=== PATIENT | female | born 1945 | race Caucasian/White ===

== ENCOUNTER → 2016-11-03 | Outpatient (CLI) | payer MEDICARE, BC, OTHER ==
--- NOTE | 2016-11-04 09:58 | RAD ---
DATE: 11/03/2016 EXAM: MAMMO ADOLFO SCREENING BILATERAL HISTORY: Routine screening COMPARISON: This study was interpreted with the benefit of Computerized Aided Detection (CAD). FINDINGS: Breast Density: SCATTERED The breast parenchyma shows scattered fibroglandular densities. Breast parenchyma level B. There are no dominant suspicious masses, suspicious microcalcifications or evidence of architectural distortion. Small right intramammary lymph node grossly similar to prior exam. IMPRESSION: Benign findings BI-RADS CATEGORY: 2 BENIGN FINDING RECOMMENDED FOLLOW-UP: 12M 12 MONTH FOLLOW-UP PQRS compliance statement: Patient information was entered into a reminder system with a target due date 11/03/2017 for the next mammogram. Mammography is a sensitive method for finding small breast cancers, but it does not detect them all and is not a substitute for careful clinical examination. A negative mammogram does not negate a clinically suspicious finding and should not result in delay in biopsying a clinically suspicious abnormality. "Our facility is accredited by the [employer] Mammography [employer]."
== END | disposition home or self-care (01) ==
LOC: MAMMO 08:25
PROVIDERS: ATTEND Family Medicine
DX: Z12.31 Encounter for screening mammogram for malignant neoplasm of breast (principal)
CPT/HCPCS: 77063; G0202; 77067

== ENCOUNTER 2017-12-29 09:41 | Inpatient (IN) | payer MEDICARE, BC, OTHER ==
[2017-12-29] VITALS (8 sets, daily range): BP systolic 98–124; BP diastolic 47–65
[~2017-12-29] VITALS: Ht 162.6 cm; Wt 88.7 kg
[2017-12-29] MEDS ORDERED: IV NORMAL SALINE 1,000ML 1,000 ML IV ONE ×2 (10:45→12:00)
[2017-12-29 10:58] LABS: BASO % 0 % (0-3); EOS # 0.2 x10^3/uL (0.0-0.7); EOS % 3 % (0-3); HEMATOCRIT 43.2 % (36.0-47.0); HEMOGLOBIN 14.7 g/dL (12.0-15.5); LYMPH # 1.1 x10^3/uL (1.0-4.8); LYMPH % 16 % (24-48); MEAN CORPUSCULAR HEMOGLOBIN 32 pg (25-35); MEAN CORPUSCULAR HGB CONC 34 g/dL (31-37); MEAN CORPUSCULAR VOLUME 95 fL (79-100); MONO # 0.8 x10^3/uL (0.0-1.1); MONO % 11 % (0-9); NEUT # 4.9 x10^3uL (1.8-7.7); NEUT % 70 % (31-73); PLATELET COUNT 212 x10^3/uL (140-400); RED BLOOD COUNT 4.56 x10^6/uL (3.50-5.40); RED CELL DISTRIBUTION WIDTH 12.1 % (11.5-14.5); WHITE BLOOD COUNT 7.1 x10^3/uL (4.0-11.0)
[2017-12-29 11:29] LABS: ALBUMIN 3.2 g/dL (3.4-5.0); CALCIUM 9.6 mg/dL (8.5-10.1); CREATININE 1.7 mg/dL (0.6-1.0); GFR 29.4; MAGNESIUM 2.5 mg/dL (1.8-2.4); POTASSIUM 4.2 mmol/L (3.5-5.1); TOTAL BILIRUBIN 0.6 mg/dL (0.2-1.0); TOTAL PROTEIN 6.5 g/dL (6.4-8.2)
[2017-12-29] MEDS ORDERED: MAGNESIUM SULFATE 2GM 50 ML IV PRN (11:30)
[2017-12-29] MEDS ORDERED: IV NORMAL SALINE 1,000ML 1,000 ML IV SCH (11:30)
[2017-12-29] MEDS ORDERED: GLIP-112 PO (11:31)
[2017-12-29] MEDS ORDERED: NYST1000 PO (11:31)
[2017-12-29] MEDS ORDERED: OLME1TAB21 PO (11:31)
[2017-12-29 11:33] LABS: BACTERIA,URINE FEW /HPF (0-FEW); BILIRUBIN,URINE NEG (NEG); CLARITY,URINE HAZY; COLOR,URINE YELLOW; GLUCOSE,URINE >=1000 mg/dL (NEG); NITRITE,URINE NEG (NEG); SQUAMOUS EPITHELIAL CELL,UR MOD /LPF; UROBILINOGEN,URINE 0.2 mg/dL (0.2 mg/dL)
[2017-12-29 11:34] LABS: YEAST,URINE PRESENT /HPF
[2017-12-29] MEDS: IV NORMAL SALINE 1,000ML 1,000 ML IV SCH ×2 (11:40→18:16)
[2017-12-29] MEDS ORDERED: DEXTROSE 50% 25 GM / 50ML DISP.SYRIN. IV PRN (11:45)
[2017-12-29] MEDS ORDERED: INSULIN REGULAR 100 UNIT/ML 10ML VIAL. IV ONE (12:00)
[2017-12-29] MEDS ORDERED: INSULIN REGULAR VIAL 150 UNIT in 0.9 % SODIUM CHLORIDE 150ML 150 ML IV PRN (12:00)
[2017-12-29] MEDS: INSULIN LISPRO 300 UNITS/3 ML INSULN.PEN. SQ SCH ×2 (13:54→15:15)
[2017-12-29] MEDS: NYSTATIN 100,000 UNITS/ML ORAL SUSPENSION 60ML BOTTLE. SWSW SCH (21:25)
[2017-12-30] VITALS (7 sets, daily range): BP systolic 101–138; BP diastolic 54–69
[2017-12-30] MEDS: IV NORMAL SALINE 1,000ML 1,000 ML IV SCH ×4 (00:17→12:30)
[2017-12-30 06:49] LABS: BASO % 1 % (0-3); EOS # 0.3 x10^3/uL (0.0-0.7); EOS % 6 % (0-3); HEMATOCRIT 40.6 % (36.0-47.0); HEMOGLOBIN 13.7 g/dL (12.0-15.5); LYMPH # 1.9 x10^3/uL (1.0-4.8); LYMPH % 32 % (24-48); MEAN CORPUSCULAR HEMOGLOBIN 32 pg (25-35); MEAN CORPUSCULAR HGB CONC 34 g/dL (31-37); MEAN CORPUSCULAR VOLUME 95 fL (79-100); MONO # 0.6 x10^3/uL (0.0-1.1); MONO % 11 % (0-9); NEUT # 3.1 x10^3uL (1.8-7.7); NEUT % 52 % (31-73); PLATELET COUNT 184 x10^3/uL (140-400); RED BLOOD COUNT 4.28 x10^6/uL (3.50-5.40); RED CELL DISTRIBUTION WIDTH 12.2 % (11.5-14.5); WHITE BLOOD COUNT 6.1 x10^3/uL (4.0-11.0)
[2017-12-30 07:12] LABS: ALBUMIN 2.4 g/dL (3.4-5.0); ALBUMIN/GLOBULIN RATIO 0.9 (1.0-1.7); CREATININE 0.9 mg/dL (0.6-1.0); GFR 61.2; POTASSIUM 3.5 mmol/L (3.5-5.1); TOTAL BILIRUBIN 0.4 mg/dL (0.2-1.0); TOTAL PROTEIN 5.2 g/dL (6.4-8.2)
[2017-12-30] MEDS: NYSTATIN 100,000 UNITS/ML ORAL SUSPENSION 60ML BOTTLE. SWSW SCH ×5 (08:20→21:58)
[2017-12-30] MEDS: INSULIN LISPRO 300 UNITS/3 ML INSULN.PEN. SQ SCH ×3 (08:29→17:20)
[2017-12-30] MEDS: INSULIN GLARGINE 300 UNITS/3 ML INSULN.PEN. SQ SCH (22:01)
--- NOTE | 2017-12-31 00:01 | PN ---
DATE: 12/30/2017 SUBJECTIVE: A 72-year-old female came in with severe hyperglycemia. Her blood sugar in the office was over 800. As a result of this, the patient was placed in the unit, given IV fluids and the like. She has made excellent progress receiving diabetic education as well as dietetics as well. Her sugars have been steadily coming down with the increase in Lantus as well as Humalog. Her albumin is low at 2.4. The patient is making good progress. She is continuing to advance carefully. IMPRESSION: Severe hyperglycemia, blood sugar greater than 800, new onset, history of hypertension, morbid obesity. PLAN: Continue to monitor the patient accordingly and advance activity and hopefully ready for discharge in the a.m. CHRISTIAN PEREZ MD DR: DEVON/hung JOB#: [id number] / [id number]
[2017-12-31] MEDS: NYSTATIN 100,000 UNITS/ML ORAL SUSPENSION 60ML BOTTLE. SWSW SCH (08:03)
[2017-12-31] MEDS: INSULIN GLARGINE 300 UNITS/3 ML INSULN.PEN. SQ SCH (08:06)
[2017-12-31] MEDS: INSULIN LISPRO 300 UNITS/3 ML INSULN.PEN. SQ SCH ×2 (08:06→12:27)
[2017-12-31] MEDS ORDERED: hydroCHLOROthiazide 12.5 MG CAPSULE PO SCH (09:00)
[2017-12-31] MEDS ORDERED: LACTOBACILLUS RHAMNOSUS GG 1 CAPSULE. PO SCH (09:00)
[2017-12-31] MEDS ORDERED: LOSARTAN 50 MG TABLET. PO SCH (09:00)
[2017-12-31 11:07] VITALS: BP 137/64
[2017-12-31] MEDS ORDERED: INSU100I11 SQ (15:00)
[2017-12-31] MEDS ORDERED: INSU100I13 SQ (15:00)
[2017-12-31] MEDS ORDERED: OMEG1CAP2 PO (15:01)
[2017-12-31 15:04] VITALS: BP 129/75
[2018-01-03 01:25] LABS: HEMOGLOBIN A1C 13.8 % (4.8-5.6)
== END 2017-12-31 18:29 | disposition home or self-care (01) | DRG 682 ==
LOC: ICU 09:41
PROVIDERS: ADMIT Family Medicine; ATTEND Family Medicine
DX: N17.0 Acute kidney failure with tubular necrosis (principal); E11.00 Type 2 diabetes mellitus with hyperosmolarity without nonketotic hyperglycemic-hyperosmolar coma (NKHHC); E11.65 Type 2 diabetes mellitus with hyperglycemia; I10 Essential (primary) hypertension; E66.01 Morbid (severe) obesity due to excess calories; Z79.4 Long term (current) use of insulin; M19.90 Unspecified osteoarthritis, unspecified site; E11.40 Type 2 diabetes mellitus with diabetic neuropathy, unspecified; Z82.3 Family history of stroke; E78.1 Pure hyperglyceridemia; H53.19 Other subjective visual disturbances; N18.3 Chronic kidney disease, stage 3 (moderate)
CPT/HCPCS: 36415; 80053; 81001; 82010; 82947; 83036; 83735; 83930; 84100; 85025; 87086; 87641; J1815; J7030

== ENCOUNTER → 2018-04-14 | Outpatient (CLI) | payer MEDICARE, BC, OTHER ==
[~2018-04-14] MED LIST: GLIP-112 PO; INSU100I11 SQ; INSU100I13 SQ; NYST1000 PO; OLME1TAB21 PO; OMEG1CAP2 PO
--- NOTE | 2018-04-14 11:27 | RAD ---
DATE: 04/14/2018 EXAM: MAMMO ADOLFO SCREENING BILATERAL HISTORY: Routine screening COMPARISON: 11/03/2016 This study was interpreted with the benefit of Computerized Aided Detection (CAD). Breast Density: SCATTERED The breast parenchyma shows scattered fibroglandular densities. Breast parenchyma level B. FINDINGS: No new or enlarging breast densities are seen. Minimal benign type calcifications present. No suspicious microcalcifications have developed. IMPRESSION: Stable mammograms without evidence of malignancy. BI-RADS CATEGORY: 2 BENIGN FINDING(S) RECOMMENDED FOLLOW-UP: 12M 12 MONTH FOLLOW-UP PQRS compliance statement: Patient information was entered into a reminder system with a target due date for the next mammogram. Mammography is a sensitive method for finding small breast cancers, but it does not detect them all and is not a substitute for careful clinical examination. A negative mammogram does not negate a clinically suspicious finding and should not result in delay in biopsying a clinically suspicious abnormality. "Our facility is accredited by the [employer] Mammography [employer]."
== END | disposition home or self-care (01) ==
LOC: MAMMO 08:38
PROVIDERS: ATTEND Family Medicine
DX: Z12.31 Encounter for screening mammogram for malignant neoplasm of breast (principal)
CPT/HCPCS: 77063; 77067

== ENCOUNTER → 2019-05-09 | Outpatient (CLI) | payer MEDICARE, BC, OTHER ==
[~2019-05-09] MED LIST changes: -GLIP-112 PO; +GLIP10TA24 PO
--- NOTE | 2019-05-11 10:56 | RAD ---
DATE: 05/09/2019. EXAM: MAMMO ADOLFO SCREENING BILATERAL. HISTORY: Routine mammographic screening. COMPARISON: 04/14/2018. This study was interpreted with the benefit of Computerized Aided Detection (CAD). FINDINGS: Breast Density: SCATTERED The breast parenchyma shows scattered fibroglandular densities. Breast parenchyma level B.. Scattered calcifications are benign. The parenchymal pattern is stable. There are no suspicious masses, microcalcifications or architectural distortion. BI-RADS CATEGORY: 2 BENIGN FINDING(S). RECOMMENDED FOLLOW-UP: 12M 12 MONTH FOLLOW-UP. PQRS compliance statement: Patient information was entered into a reminder system with a target due date 05/09/2020 for the next mammogram. Mammography is a sensitive method for finding small breast cancers, but it does not detect them all and is not a substitute for careful clinical examination. A negative mammogram does not negate a clinically suspicious finding and should not result in delay in biopsying a clinically suspicious abnormality. "Our facility is accredited by the [employer] Mammography [employer]."
== END | disposition home or self-care (01) ==
LOC: MAMMO 07:48
PROVIDERS: ATTEND Family Medicine
DX: Z12.31 Encounter for screening mammogram for malignant neoplasm of breast (principal); N64.89 Other specified disorders of breast
CPT/HCPCS: 77063; 77067

== ENCOUNTER → 2020-05-12 | Outpatient (CLI) | payer MEDICARE, BC, OTHER ==
--- NOTE | 2020-05-12 15:47 | RAD ---
DATE: 05/12/2020 8:07 AM EXAM: MAMMO ADOLFO SCREENING BILATERAL HISTORY: Screening COMPARISON: 05/09/2019 Bilateral CC and MLO views of the breasts were performed. Bilateral breast tomosynthesis was performed in CC and MLO projections. This study was interpreted with the benefit of Computerized Aided Detection (CAD). FINDINGS: Breast Density: SCATTERED The breast parenchyma shows scattered fibroglandular densities. Breast parenchyma level B No suspicious masses, microcalcifications or architectural distortion is present to suggest malignancy in either breast. The visualized axillae are unremarkable. IMPRESSION: No mammographic evidence of malignancy. BI-RADS CATEGORY: 1 NEGATIVE RECOMMENDED FOLLOW-UP: 12M 12 MONTH FOLLOW-UP Annual screening mammography is recommended, unless clinically indicated sooner based on symptoms or change in physical exam. PQRS compliance statement: Patient information was entered into a reminder system with a target due date for the next mammogram. Mammography is a sensitive method for finding small breast cancers, but it does not detect them all and is not a substitute for careful clinical examination. A negative mammogram does not negate a clinically suspicious finding and should not result in delay in biopsying a clinically suspicious abnormality. "Our facility is accredited by the [employer] Mammography Program."
== END ==
LOC: MAMMO 07:57
PROVIDERS: ATTEND Family Medicine
DX: Z12.31 Encounter for screening mammogram for malignant neoplasm of breast (principal)
CPT/HCPCS: 77063; 77067

== ENCOUNTER 2020-07-15 15:59 | Inpatient (IN) | payer MEDICARE, BC, OTHER ==
[~2020-07-15] VITALS: Ht 162.6 cm; Wt 80.6 kg
--- NOTE | 2020-07-15 16:04 | NUR ---
OUTPATIENT VISIT-PT ARRIVES FOR OUTPATIENT DIAGNOSTIC/TREATMENT OF SUSPECTED BOWEL IMPACTION. SHE IS AMBULATORY TO ROOM. VS ASSESSED, PT HEADED TO CT SCAN PRIOR TO PLANNED ADMINISTRATION OF MOM ENEMA ET [place] ONCE CT HAS RESULTED. VS ASSESSED. PT RESTING IN BED UNTIL CT AVAILABLE.
[2020-07-15 16:13] VITALS: BP 128/72
[2020-07-15] MEDS: KETOROLAC 60 MG/2 ML VIAL. IM ONE ×2 (16:30→21:26)
[2020-07-15] MEDS ORDERED: PEG 3350/NA SULF,BICARB,CL/KCL 4,000 ML SOLUTION. PO ONE ×2 (16:30→19:30)
--- NOTE | 2020-07-15 17:38 | RAD ---
EXAM: CT Abdomen and Pelvis without IV contrast CLINICAL HISTORY: Reason: ABDMONIAL PAIN/INTESTINAL IMPACTION / Spl. Instructions: / History: . COMPARISON: none TECHNIQUE: Helical CT of the abdomen and pelvis without intravenous contrast. Axial, coronal and sagi ttal reformatted images were generated. PQRS compliance statement - One or more of the following individualized dose reduction techniques wer e utilized for this study: 1. Automated exposure control 2. Adjustment of the mA and/or kV according to patient size 3. Use of iterative reconstruction technique FINDINGS: Lack of intravenous contrast limits evaluation of solid organs, vasculature, and lymph nodes. Lower chest: Coronary calcifications are seen. Abdomen and Pelvis: Liver, spleen, adrenal glands and pancreas are unremarkable. Gallbladder while calcifications versus adherent calcified gallstones. No biliary ductal dilatation. Hypodense bilateral lower pole renal lesions are too small to accurately characterize. No hydronephro sis or hydroureter. Bladder is unremarkable. Appendix is normal. Mild to moderate colonic stool content. However there is marked stool content wit hin the rectum with rectal wall thickening. Perirectal and presacral infiltration. No small or large bowel dilatation. No bowel obstruction. Aortic and main branch arterial calcifications are seen. Trace fat-containing periumbilical hernia. No abdominal or pelvic lymphadenopathy by size criteria although prominent retroperitoneal and iliac chain lymph nodes are seen. No ascites. No free intraperitoneal gas. Bones: Lucent lesion within the left iliac bone measuring 2.6 cm, nonspecific and possibly degenerative cyst ic although underlying lytic lesion is not excluded. Hip joint degenerative changes and SI joint dege nerative changes bilaterally. IMPRESSION: 1. Marked stool content in the rectum with perirectal infiltration consistent with stercoral colitis . No definite extraluminal gas to suggest perforation. 2. Lucent lesion within the left iliac bone may represent degenerative cystic change however underly ing lucent lesion is not excluded and can be compared to prior examinations if available. If further imaging is clinically required, MRI would provide additional details. 3. Gallbladder wall calcifications or adherent calcified gallstones. This can be further assessed by gallbladder ultrasound. Electronically signed by: Justin Jane MD (07/15/2020 5:35 PM) [facility]
[2020-07-15] MEDS ORDERED: IV NORMAL SALINE 1,000ML 1,000 ML IV SCH (18:30)
--- NOTE | 2020-07-15 18:38 | NUR ---
AFTER ENEMA ADMINISTRATION, PT HAS XXXL BM ON BSC. SHE REPORTS ABDOMINAL PAIN COMPLETELY RESOLVED.
[2020-07-15] MEDS: IV NORMAL SALINE 1,000ML 1,000 ML IV SCH (18:45)
[2020-07-15] MEDS ORDERED: MINERAL OIL 133 ML ENEMA. PR ONE ×2 (18:45→19:30)
[2020-07-15 19:09] LABS: BASO # 0.1 x10^3/uL (0.0-0.2); BASO % 1 % (0-3); EOS % 0 % (0-3); HEMATOCRIT 42.6 % (36.0-47.0); HEMOGLOBIN 14.7 g/dL (12.0-15.5); LYMPH % 8 % (24-48); MEAN CORPUSCULAR HEMOGLOBIN 31 pg (25-35); MEAN CORPUSCULAR HGB CONC 34 g/dL (31-37); MEAN CORPUSCULAR VOLUME 91 fL (79-100); MONO # 1.6 x10^3/uL (0.0-1.1); MONO % 14 % (0-9); NEUT % 77 % (31-73); PLATELET COUNT 215 x10^3/uL (140-400); RED BLOOD COUNT 4.68 x10^6/uL (3.50-5.40); RED CELL DISTRIBUTION WIDTH 13.5 % (11.5-14.5); WHITE BLOOD COUNT 11.8 x10^3/uL (4.0-11.0)
[2020-07-15 19:19] LABS: CALCIUM 9.7 mg/dL (8.5-10.1); CREATININE 0.9 mg/dL (0.6-1.0); GFR 60.9; POTASSIUM 3.1 mmol/L (3.5-5.1)
[2020-07-15 19:25] LABS: ALBUMIN 3.4 g/dL (3.4-5.0); ALBUMIN/GLOBULIN RATIO 0.8 (1.0-1.7); C REACTIVE PROTEIN 114.2 mg/L (0-3.3); TOTAL BILIRUBIN 1.1 mg/dL (0.2-1.0); TOTAL PROTEIN 7.5 g/dL (6.4-8.2)
--- NOTE | 2020-07-15 19:56 | NUR ---
PT HAS BEEN SWITCHED FROM OUTPATIENT TO INPATIENT STATUS.
[2020-07-15] MEDS ORDERED: ZOLPIDEM 5 MG TABLET. PO PRN (20:15)
[2020-07-15] MEDS ORDERED: ACETAMINOPHEN 500 MG TABLET PO PRN (20:15)
[2020-07-15] MEDS ORDERED: KETOROLAC 15 MG/ML VIAL. IVP PRN (20:15)
[2020-07-15] MEDS ORDERED: ELECTROLYTE (NON-ICU) PROTOCOL. MC PRN (20:15)
[2020-07-15] MEDS ORDERED: DOCUSATE SODIUM 100 MG CAPSULE PO SCH (21:00)
[2020-07-15] MEDS: INSULIN GLARGINE SYRINGE. SQ SCH (21:00)
[2020-07-15] MEDS: OMEGA-3 FATTY ACIDS/FISH OIL 1,000 MG CAPSULE. PO SCH (21:26)
[2020-07-15] MEDS: DOCUSATE SODIUM 100 MG CAPSULE PO SCH (21:26)
[2020-07-15] MEDS: NYSTATIN 100,000 UNITS/ML ORAL SUSPENSION 60ML BOTTLE. PO SCH (22:54)
[2020-07-15] MEDS: CLINDAMYCIN 600MG PREMIX 50 ML IV SCH (22:54)
[2020-07-16 00:17] VITALS: BP 126/69
[2020-07-16 05:39] VITALS: BP 109/66
[2020-07-16] MEDS: CLINDAMYCIN 600MG PREMIX 50 ML IV SCH (05:42)
[2020-07-16 06:17] LABS: BASO % 0 % (0-3); EOS # 0.2 x10^3/uL (0.0-0.7); EOS % 2 % (0-3); HEMATOCRIT 36.7 % (36.0-47.0); HEMOGLOBIN 12.7 g/dL (12.0-15.5); LYMPH # 1.1 x10^3/uL (1.0-4.8); LYMPH % 16 % (24-48); MEAN CORPUSCULAR HEMOGLOBIN 31 pg (25-35); MEAN CORPUSCULAR HGB CONC 35 g/dL (31-37); MEAN CORPUSCULAR VOLUME 91 fL (79-100); MONO # 1.1 x10^3/uL (0.0-1.1); MONO % 16 % (0-9); NEUT # 4.5 x10^3uL (1.8-7.7); NEUT % 66 % (31-73); PLATELET COUNT 166 x10^3/uL (140-400); RED BLOOD COUNT 4.05 x10^6/uL (3.50-5.40); RED CELL DISTRIBUTION WIDTH 13.6 % (11.5-14.5); WHITE BLOOD COUNT 6.8 x10^3/uL (4.0-11.0)
[2020-07-16 06:34] LABS: ALBUMIN 2.5 g/dL (3.4-5.0); ALBUMIN/GLOBULIN RATIO 0.7 (1.0-1.7); CALCIUM 8.7 mg/dL (8.5-10.1); CREATININE 0.8 mg/dL (0.6-1.0); GFR 69.7; TOTAL BILIRUBIN 0.9 mg/dL (0.2-1.0)
[2020-07-16 06:37] LABS: POTASSIUM 2.9 mmol/L (3.5-5.1)
[2020-07-16] MEDS: POTASSIUM CHLORIDE 10MEQ 100 ML IV SCH ×4 (07:37→10:46)
[2020-07-16] MEDS ORDERED: INSULIN LISPRO 300 UNITS/3 ML VIAL. SQ SCH (08:00)
[2020-07-16] MEDS: IV NORMAL SALINE 1,000ML 1,000 ML IV SCH (08:05)
[2020-07-16] MEDS: NYSTATIN 100,000 UNITS/ML ORAL SUSPENSION 60ML BOTTLE. PO SCH (09:00)
[2020-07-16] MEDS ORDERED: hydroCHLOROthiazide 12.5 MG CAPSULE PO SCH (09:00)
[2020-07-16] MEDS ORDERED: LOSARTAN 50 MG TABLET. PO SCH (09:00)
[2020-07-16] MEDS: INSULIN GLARGINE SYRINGE. SQ SCH (09:00)
[2020-07-16] MEDS: DOCUSATE SODIUM 100 MG CAPSULE PO SCH (10:24)
[2020-07-16 10:25] VITALS: BP 109/66
[2020-07-16] MEDS: OMEGA-3 FATTY ACIDS/FISH OIL 1,000 MG CAPSULE. PO SCH (10:25)
[2020-07-16] MEDS ORDERED: POTA20TA4 PO (11:15)
[2020-07-16] MEDS ORDERED: CLIN300C3 PO (11:15)
--- NOTE | 2020-07-16 11:47 | NUR ---
DISCHARGE NOTE-PIV DC'D. PT DRESSING ET READY FOR DISCHARGE. AMBULATORY AD CLAUDINE, NO DEVICE OR O2 NEEDED. SKIN CDI. DC PAPERWORK COVERED WITH PATIENT, SIGNATURE OBTAINED. FAMILY MEMBER CALLED FOR RIDE, AWAITING THEIR ARRIVAL.
--- NOTE | 2020-07-16 12:24 | DS ---
DATE OF DISCHARGE: 07/16/2020 HOSPITAL COURSE: A 74-year-old female came in the office with 10/10 severe pain in her rectal area, had not had a bowel movement for over a week. The patient had a rectal exam there and even the slightest touch to the rectal area caused excruciating pain. The patient had given a shot of penicillin in the office for pain relief and then brought into the hospital for further evaluation. Her CAT scan was demonstrative of an area of stercoral colitis as well as some perirectal infiltration. There was no gas or perforation noted. The gallbladder wall was calcified and had adherent calcified gallstones, but the main part here of course was the colitis down in the rectal area that was significant. The patient was brought in through the expert care of the nursing staff evacuated 5 large bowel movements from this patient. She feels much better this morning. Her vital signs remained stable. She did have a low-grade temperature of 99.3 and we will go ahead and continue on oral antibiotics for that. She received IV while in the hospital. The patient's chemistries did show a low potassium 2.9, sodium 132, BUN and creatinine 14 and 0.8, moderate protein malnutrition 2.5. The patient adjusted on an electrolyte replacement there. IMPRESSION: Stercoral colitis, hypokalemia, hyponatremia, type 2 diabetes. The patient will have a soft diet, decreased activity. Good bowel hygiene. She talked to a dietitian about combining fruits and veggies with her diabetes and her bowels. Otherwise, see MRAD. She will follow up in one week and then probably have her see a cartography technician as well. CHRISTIAN PEREZ MD DR: DEVON/hung JOB#: [id number] / [id number]
== END 2020-07-16 12:14 | disposition home or self-care (01) | DRG 392 ==
LOC: OPINF 15:59 → 1 SOUTH 17:50
PROVIDERS: ADMIT Family Medicine; ATTEND Family Medicine
DX: K52.89 Other specified noninfective gastroenteritis and colitis (principal); E44.0 Moderate protein-calorie malnutrition; E87.1 Hypo-osmolality and hyponatremia; K56.49 Other impaction of intestine; E11.9 Type 2 diabetes mellitus without complications; E87.6 Hypokalemia; K80.20 Calculus of gallbladder without cholecystitis without obstruction; Z68.30 Body mass index [BMI] 30.0-30.9, adult; Z88.0 Allergy status to penicillin; Z90.710 Acquired absence of both cervix and uterus; Z82.3 Family history of stroke
CPT/HCPCS: 36415; 74176; 80053; 83605; 85025; 86140; 87040; J1815; J1885; J1956; J3480; J3490; J7030

== ENCOUNTER → 2021-05-20 | Outpatient (CLI) | payer MEDICARE, BC, OTHER ==
[~2021-05-20] MED LIST changes: +CLIN300C3 PO; +POTA20TA4 PO
--- NOTE | 2021-05-20 13:32 | RAD ---
BILATERAL DIGITAL SCREENING 2-D AND 3-D MAMMOGRAM INDICATION: Routine screening. COMPARISON: 05/12/2020, 05/09/2019, 04/14/2018, 11/03/2016. Interpretation was made using CAD. FINDINGS: Breast Density: There are scattered areas of fibroglandular density. RIGHT BREAST: No suspicious masses, calcifications or areas of architectural distortion are seen. LEFT BREAST: No suspicious masses, calcifications or areas of architectural distortion are seen. IMPRESSION: 1. No imaging evidence of malignancy. ASSESSMENT: BI-RADS 1: Negative. RECOMMENDATION: Routine annual screening mammogram. The facility will notify the patient of the results via mail. Patient information will be entered int o the mammography reminder system with a target recall date for the next mammogram. A reminder letter will be generated by the facility. Electronically signed by: Elio Forrest MD (05/20/2021 1:30 PM) [id number]
== END ==
LOC: MAMMO 07:53
PROVIDERS: ATTEND Family Medicine
DX: Z12.31 Encounter for screening mammogram for malignant neoplasm of breast (principal)
CPT/HCPCS: 77063; 77067